=== PATIENT | female | born 1955 | race Caucasian/White ===

== ENCOUNTER → 2017-04-04 | Outpatient (CLI) | payer BC ==
--- NOTE | 2017-04-04 18:24 | KCIC ---
Bilateral digital screening mammograms: Reason for examination: Routine screening. Comparison is made to previous studies dated 03/13/2016 and 12/28/2014. The skin and nipples show no abnormalities. No abnormal axillary lymph nodes are seen. The breast parenchyma is heterogeneously dense. (Breast density: Category C.) There appears to be some new nodularity medially in the right breast on cc view. Further evaluation with additional views and ultrasound is recommended. There are no other dominant masses, suspicious calcifications or architectural distortion. Impression: New nodularity in the medial right breast seen on CC view only. Recommend further evaluation with coned compression view in CC projection and true lateral view and ultrasound. Your patient's mammogram demonstrates that she has dense breast tissue (breast density category C or D), which could hide abnormalities, and if she has other risk factors for breast cancer that have been identified, she might benefit from supplemental screening tests that may be suggested by you as her ordering physician. Dense breast tissue, in and of itself, is a relatively common condition. Therefore, this information is not provided to cause undue concern, but rather to raise your awareness and to promote discussion with your patient regarding the presence of other risk factors, in addition to dense breast tissue. Your patient's mammography results will be sent to her. BI-RAD Category 0: Incomplete. Additional imaging is recommended. "Our facility is accredited by the [employer] Mammography [employer]." This patient's information has been entered into a reminder system for the patient to be notified with the results of her examination and a target date for the next mammogram. Electronically signed by: Merly Carrera MD (04/04/2017 6:21 PM)
== END | disposition home or self-care (01) ==
LOC: KCIC MAMMO 12:09
PROVIDERS: ATTEND Obstetrics & Gynecology
DX: Z12.31 Encounter for screening mammogram for malignant neoplasm of breast (principal); N63 Unspecified lump in breast
CPT/HCPCS: G0202; 77067

== ENCOUNTER → 2017-05-02 | Outpatient (CLI) | payer BC ==
--- NOTE | 2017-05-02 14:09 | KCIC ---
Diagnostic digital mammograms right breast: Reason for examination: Possible nodule on screening mammogram. Comparison is made to mammographic exam dated 04/04/2017. Coned compression views were obtained in CC and lateral projections the area of nodularity does not appear to persist. There is heterogeneous fibroglandular density and further evaluation with ultrasound will follow. IMPRESSION: Heterogeneous density with no discrete nodule evident with additional views. Ultrasound to follow. BI-RADS Category 0: Incomplete. Ultrasound to follow. Right breast ultrasound: Ultrasound examination of the right breast was performed. No discrete cystic or solid nodules or architectural distortions are seen. IMPRESSION: No focal abnormality is seen sonographically in the right breast. Recommend routine mammographic follow-up. BI-RADS Category 1: Negative. "Our facility is accredited by the [employer]ammography [employer]." This patient's information has been entered into a reminder system for the patient to be notified with the results of her examination and a target date for the next mammogram. Electronically signed by: Merly Carrera MD (05/02/2017 2:05 PM) [id number]
== END | disposition home or self-care (01) ==
LOC: KCIC MAMMO 12:36
PROVIDERS: ATTEND Obstetrics & Gynecology
DX: N63 Unspecified lump in breast (principal)
CPT/HCPCS: 76641; G0206; 77065